=== PATIENT | male | born 2000 | race Caucasian/White ===

== ENCOUNTER 2023-03-12 16:05 | Day surgery (SDC) | payer OTHER ==
[2023-03-12] MEDS ORDERED: FAMOTIDINE 20 MG/50 ML IVPB 20 MG/50 ML MG IVPB ONE ×2 (16:47→17:09)
[2023-03-12] MEDS ORDERED: ACETAMINOPHEN 1000 MG/100 ML BAG IVPB ONE (16:47)
[2023-03-12] MEDS ORDERED: SODIUM CHLORIDE 0.9% 500 ML INFUS.BAG IV ONE (16:47)
[2023-03-12] MEDS ORDERED: ONDANSETRON 4 MG/2 ML VIAL IVPUSH ONE (16:47)
[2023-03-12] MEDS ORDERED: ACETAMINOPHEN INJECTION 100 ML IVPB ONE (17:09)
[2023-03-12] MEDS ORDERED: ONDANSETRON 4 MG/2 ML VIAL ONE (17:09)
[2023-03-12 17:20] LABS: HEMATOCRIT 43.7 % (35.4-49); HEMOGLOBIN 15.1 G/dL (11.7-16.9); MCH 31.5 pg (25.7-33.7); MCHC 34.6 g/dl (32.0-35.9); MEAN CELL VOLUME 91.1 fl (80-96); MEAN PLT VOLUME 7.4 fl (7.5-11.1); PLATELET COUNT 210.5 10^3/uL (134-434); RDW 13.6 % (11.9-15.9); WHITE BLOOD COUNT 15.1 10^3/uL (4.0-10.8)
[2023-03-12 17:28] LABS: INR 1.16 (0.83-1.09); PROTHROMBIN TIME (PATIENT) 13.4 SEC (9.7-13.0)
[2023-03-12 17:30] LABS: ACTIVATED PTT 29.2 SECONDS (25.2-36.5)
[2023-03-12 17:36] LABS: ALBUMIN 4.4 g/dl (3.4-5.0); BILIRUBIN,TOTAL 1.8 mg/dl (0.2-1); BLOOD UREA NITROGEN 13.9 mg/dl (7-18); CALCIUM 9.2 mg/dl (8.5-10.1); CREATININE 0.9 mg/dl (0.6-1.3); MAGNESIUM 2.1 mg/dL (1.8-2.4); POTASSIUM 3.4 mmol/L (3.5-5.1); SGOT/AST 50.1 U/L (15-37); SGPT/ALT 41.6 U/L (7-52); TOT PROT 6.9 g/dl (6.4-8.2)
[2023-03-12 18:02] LABS: PLATELET ESTIMATE ADEQUATE
[2023-03-12] MEDS ORDERED: PIPERACILLIN/TAZOBACTAM 4.5 GM VIAL IVPB ONE (22:02)
[2023-03-12] MEDS ORDERED: PIPERACILLIN/TAZOB 4.5 GM 4.5 GM in DEXTROSE 5%-WATER 100 ML IVPB ONE (22:02)
[2023-03-12] MEDS ORDERED: SODIUM CHLORIDE 1,000 ML IV ONE (22:02)
[2023-03-12] MEDS ORDERED: DEXTROSE 5%-NORMAL SALINE 1,000 ML IV SCH (23:00)
[2023-03-12 23:02] VITALS: BMI 24.9
[2023-03-13] MEDS ORDERED: ONDANSETRON 4 MG/2 ML VIAL IVPUSH PRN (01:15)
[2023-03-13] MEDS ORDERED: ACETAMINOPHEN 1000 MG/100 ML BAG IVPB PRN (01:15)
[2023-03-13] MEDS ORDERED: PIPERACILLIN/TAZOB 3.375 GM 3.375 GM in DEXTROSE 5%-WATER - 50 ML IVPB SCH (03:00)
[2023-03-13 09:21] LABS: BLOOD UREA NITROGEN 12.1 mg/dl (7-18); CALCIUM 8.7 mg/dl (8.5-10.1); POTASSIUM 3.9 mmol/L (3.5-5.1)
[2023-03-13] MEDS: CEFAZOLIN 1 GM in DEXTROSE 5%-WATER - 50 ML IVPB SCH ×2 (09:52→18:15)
[2023-03-13 11:47] LABS: BASO % 0.5 % (0-2.0); EOS % 1.3 % (0-4.5); HEMATOCRIT 40.4 % (35.4-49); HEMOGLOBIN 14.1 GM/dL (11.7-16.9); LYMPH % 18.5 % (8-40); MCH 31.1 pg (25.7-33.7); MCHC 34.8 g/dl (32.0-35.9); MEAN CELL VOLUME 89.4 fl (80-96); MEAN PLT VOLUME 7.6 fl (7.5-11.1); NEUT % 68.7 % (42.8-82.8); PLATELET COUNT 238 10^3/uL (134-434); RBC 4.52 M/mm3 (4.00-5.60); RDW 12.7 % (11.9-15.9); WHITE BLOOD COUNT 8.7 K/mm3 (4.0-10.0)
[2023-03-13] MEDS ORDERED: PROPOFOL 20 ML ONE ×2 (14:39→16:21)
[2023-03-13] MEDS ORDERED: SUCCINYLCHOLINE CHLORIDE 200 MG/10 ML SYRINGE ONE (14:39)
[2023-03-13] MEDS ORDERED: BUPIVACAINE HCL/PF 2.5 MG/ML - 30 ML VIAL IJ ONE (14:45)
[2023-03-13] MEDS ORDERED: MIDAZOLAM HCL 2 MG/2 ML SINGLE DOSE VIAL ONE (15:12)
[2023-03-13] MEDS ORDERED: DEXAMETHASONE SOD PHOSPHATE 4 MG/1 ML VIAL ONE (15:27)
[2023-03-13] MEDS ORDERED: ONDANSETRON 4 MG/2 ML VIAL ONE (15:27)
[2023-03-13] MEDS ORDERED: KETOROLAC TROMETHAMINE 30 MG/1 ML VIAL ONE (15:27)
[2023-03-13] MEDS ORDERED: ROCURONIUM BROMIDE 50 MG/5 ML SYRINGE ONE (15:27)
[2023-03-13] MEDS ORDERED: ceFAZolin SODIUM 1 GM VIAL ONE ×2 (15:42)
[2023-03-13] MEDS ORDERED: SUGAMMADEX SODIUM 200 MG/2 ML VIAL ONE (15:47)
[2023-03-13] MEDS ORDERED: BUPIVACAINE HCL/PF 0.25% (2.5MG/ML) 10 ML VIAL IJ ONE (16:24)
[2023-03-13] MEDS ORDERED: oxyCODONE HCL 5 MG TABLET PO PRN (16:37)
[2023-03-13] MEDS ORDERED: ACETAMINOPHEN 325 MG TABLET (FP) PO PRN (16:37)
[2023-03-13] MEDS ORDERED: LACTATED RINGERS SOLUTION 1,000 ML IV SCH (16:45)
[2023-03-13] MEDS ORDERED: ACETAMINOPHEN INJECTION 100 ML IVPB ONE (16:58)
[2023-03-13] MEDS: ACETAMINOPHEN 1000 MG/100 ML BAG IVPB ONE ×2 (16:59→17:47)
[2023-03-13] MEDS: KETOROLAC TROMETHAMINE 15 MG/ML VIAL IVPUSH SCH (17:46)
[2023-03-13 22:49] VITALS: RESP 18
[2023-03-14] MEDS: KETOROLAC TROMETHAMINE 15 MG/ML VIAL IVPUSH SCH ×3 (00:25→11:15)
[2023-03-14] MEDS: CEFAZOLIN 1 GM in DEXTROSE 5%-WATER - 50 ML IVPB SCH ×2 (02:34→11:46)
[2023-03-14] MEDS ORDERED: ACETAMINOPHEN 325 MG TABLET (FP) PO PRN (07:38)
[2023-03-14] MEDS ORDERED: oxyCODONE HCL 5 MG TABLET PO PRN (07:39)
[2023-03-14 07:53] LABS: HEMATOCRIT 41.1 % (35.4-49); HEMOGLOBIN 13.9 G/dL (11.7-16.9); MCH 30.9 pg (25.7-33.7); MCHC 33.7 g/dl (32.0-35.9); MEAN CELL VOLUME 91.6 fl (80-96); MEAN PLT VOLUME 7.3 fl (7.5-11.1); RBC 4.49 10^6/uL (4.00-5.60); RDW 13.4 % (11.9-15.9); WHITE BLOOD COUNT 10.9 10^3/uL (4.0-10.8)
[2023-03-14 08:51] LABS: ALBUMIN 3.8 g/dl (3.4-5.0); BILIRUBIN,TOTAL 0.7 mg/dl (0.2-1); BLOOD UREA NITROGEN 9.4 mg/dl (7-18); CALCIUM 8.7 mg/dl (8.5-10.1); CREATININE 0.8 mg/dl (0.6-1.3); POTASSIUM 3.8 mmol/L (3.5-5.1); SGOT/AST 18.5 U/L (15-37); SGPT/ALT 24.2 U/L (7-52); TOT PROT 6.1 g/dl (6.4-8.2)
[2023-03-14 09:19] VITALS: BP 120/52; PULSE 88; TEMP 98.3
== END 2023-03-14 14:34 | disposition home or self-care (01) ==
LOC: FER 16:05 → FM/S 22:17 → INTOOBSV 22:17 → UNDOADMOB 22:17 → FASUSAT 03-13 14:24 → FM/S 03-13 14:25 → FASUSAT 03-14 14:34
PROVIDERS: ATTEND Internal Medicine
PROC: 0DTJ4ZZ Resection of Appendix, Percutaneous Endoscopic Approach (ICD-10-PCS; principal; 2023-03-13 15:45)
DX: K35.80 Unspecified acute appendicitis (principal)
CPT/HCPCS: 0241U-QW; 36415; 74177-TC; 80048; 80053; 81003; 81015; 83690; 83735; 85025; 85027; 85610; 85730; 86850; 86900; 86901; 87086; 88304-TC; 94760; 99285-25; Q9967

== ENCOUNTER 2023-12-18 10:26 | Observation (INO) | payer OTHER ==
[2023-12-18] MEDS: SODIUM CHLORIDE 0.9% 500 ML INFUS.BAG IV ONE (10:58)
[2023-12-18] MEDS: ONDANSETRON 4 MG/2 ML VIAL IVPUSH ONE (10:59)
[2023-12-18] MEDS: ACETAMINOPHEN 1000 MG/100 ML BAG IVPB ONE (10:59)
[2023-12-18] MEDS ORDERED: ACETAMINOPHEN INJECTION 100 ML IVPB ONE (11:01)
[2023-12-18] MEDS ORDERED: ONDANSETRON 4 MG/2 ML VIAL ONE (11:01)
[2023-12-18 11:32] LABS: HEMATOCRIT 46.4 % (35.4-49); HEMOGLOBIN 15.4 G/dL (11.7-16.9); MCH 30.3 pg (25.7-33.7); MCHC 33.1 g/dl (32.0-35.9); MEAN CELL VOLUME 91.5 fl (80-96); MEAN PLT VOLUME 7.8 fl (7.5-11.1); PLATELET COUNT 192.9 10^3/uL (134-434); RBC 5.07 10^6/uL (4.00-5.60); WHITE BLOOD COUNT 11.9 10^3/uL (4.0-10.8)
[2023-12-18 11:43] LABS: ALK PHOS 53 U/L (45-117); ANION GAP 8 mmol/L (4-13); BILIRUBIN,TOTAL 0.8 mg/dl (0.2-1); CALCIUM 9.3 mg/dl (8.5-10.1); CHLORIDE 100 mmol/L (98-107); CO2 28 mmol/L (21-32); CREATININE 0.7 mg/dl (0.6-1.3); GLUCOSE,RANDOM 114 mg/dl (74-106); POTASSIUM 3.8 mmol/L (3.5-5.1); SGOT/AST 12 U/L (15-37); SGPT/ALT 18 U/L (7-52); SODIUM 136 mmol/L (136-145)
[2023-12-18] MEDS ORDERED: cefTRIAXone SODIUM 1 GM VIAL ONE (12:17)
[2023-12-18] MEDS ORDERED: PROCHLORPERAZINE INJECTION 10 MG/2 ML VIAL ONE (12:18)
[2023-12-18] MEDS: CEFTRIAXONE 2,000 MG in DEXTROSE 5%-WATER - 50 ML IVPB ONE (12:25)
[2023-12-18] MEDS: PROCHLORPERAZINE INJECTION 10 MG/2 ML VIAL IVPB ONE (12:25)
[2023-12-18] MEDS ORDERED: VANCOMYCIN 500 MG VIAL (RESTRICTED TO ID ONLY) ONE (12:33)
[2023-12-18] MEDS ORDERED: VANCOMYCIN 1,000 MG VIAL (RESTRICTED TO ID ONLY) ONE (12:34)
[2023-12-18] MEDS: VANCOMYCIN 1,250 MG in DEXTROSE 5%-WATER - 250 ML IVPB ONE (12:42)
[2023-12-18 12:49] LABS: PLATELET ESTIMATE ADEQUATE
[2023-12-18] MEDS: ACYCLOVIR INJECTION 650 MG in DEXTROSE 5%-WATER - 100 ML IVPB ONE (14:33)
[2023-12-18] MEDS: ACETAMINOPHEN 325 MG TABLET (FP) PO PRN (19:00)
[2023-12-18 20:03] VITALS: BMI 19.9
[2023-12-18] MEDS: ACYCLOVIR INJECTION 650 MG in DEXTROSE 5%-WATER - 100 ML IVPB SCH (20:55)
[2023-12-19] MEDS: CEFTRIAXONE 2 GM in DEXTROSE 5%-WATER 100 ML IVPB ONE (00:29)
[2023-12-19] MEDS: VANCOMYCIN/WATER 1250 MG 1,250 MG/250 ML BAG IVPB ONE (00:29)
[2023-12-19 08:45] LABS: HEMATOCRIT 44.2 % (35.4-49); HEMOGLOBIN 14.5 G/dL (11.7-16.9); MCH 30.1 pg (25.7-33.7); MCHC 32.7 g/dl (32.0-35.9); MEAN CELL VOLUME 92.1 fl (80-96); MEAN PLT VOLUME 7.4 fl (7.5-11.1); PLATELET COUNT 212.6 10^3/uL (134-434); RDW 13.4 % (11.9-15.9); WHITE BLOOD COUNT 5.7 10^3/uL (4.0-10.8)
[2023-12-19 09:05] LABS: ALBUMIN 3.9 g/dl (3.4-5.0); BILIRUBIN,TOTAL 0.5 mg/dl (0.2-1); CALCIUM 9.3 mg/dl (8.5-10.1); CREATININE 0.8 mg/dl (0.6-1.3); POTASSIUM 3.8 mmol/L (3.5-5.1); TOT PROT 6.6 g/dl (6.4-8.2)
[2023-12-19] MEDS: IBUPROFEN 400 MG TABLET (FP) PO SCH (09:56)
[2023-12-19] MEDS: CEFTRIAXONE 2 GM in DEXTROSE 5%-WATER 100 ML IVPB SCH (11:41)
[2023-12-19] MEDS: VANCOMYCIN/WATER 1250 MG 1,250 MG/250 ML BAG IVPB SCH (13:56)
[2023-12-19] MEDS: DOXYCYCLINE INJECTION 100 MG in DEXTROSE 5%-WATER 100 ML IVPB SCH (21:39)
[2023-12-20] MEDS ORDERED: CEFTRIAXONE 2 GM in DEXTROSE 5%-WATER 100 ML IVPB SCH (00:01)
[2023-12-20 06:37] VITALS: PULSE 78
[2023-12-20 08:59] LABS: HEMATOCRIT 47.7 % (35.4-49); HEMOGLOBIN 15.6 G/dL (11.7-16.9); MCH 30.2 pg (25.7-33.7); MCHC 32.8 g/dl (32.0-35.9); MEAN CELL VOLUME 92.1 fl (80-96); MEAN PLT VOLUME 7.4 fl (7.5-11.1); PLATELET COUNT 268.5 10^3/uL (134-434); RBC 5.18 10^6/uL (4.00-5.60); RDW 13.5 % (11.9-15.9); WHITE BLOOD COUNT 4.7 10^3/uL (4.0-10.8)
[2023-12-20 09:23] LABS: CALCIUM 9.7 mg/dl (8.5-10.1); CREATININE 0.7 mg/dl (0.6-1.3); POTASSIUM 4.2 mmol/L (3.5-5.1)
[2023-12-20 09:55] VITALS: BP 114/69; RESP 17; TEMP 98.3
[2023-12-20] MEDS: CEFTRIAXONE 2 GM in DEXTROSE 5%-WATER 100 ML IVPB SCH (10:12)
[2023-12-23 14:09] LABS: WEST NILE VIRUS AB SERUM,IGM Negative (Negative)
[2023-12-23 15:09] LABS: BABESIA MICROTI ANTIBODY IGG <1:10 (Neg:<1:10); BABESIA MICROTI ANTIBODY IGM <1:10 (Neg:<1:10)
== END 2023-12-20 14:26 | disposition home or self-care (01) ==
LOC: FER 10:26 → FM/S 13:53
PROVIDERS: ADMIT Internal Medicine; ATTEND Internal Medicine
PROC: 3E03329 Introduction of Other Anti-infective into Peripheral Vein, Percutaneous Approach (ICD-10-PCS; principal; 2023-12-18)
PROC: 3E033NZ Introduction of Analgesics, Hypnotics, Sedatives into Peripheral Vein, Percutaneous Approach (ICD-10-PCS; 2023-12-18)
PROC: 3E033GC Introduction of Other Therapeutic Substance into Peripheral Vein, Percutaneous Approach (ICD-10-PCS; 2023-12-18)
PROC: 3E0337Z Introduction of Electrolytic and Water Balance Substance into Peripheral Vein, Percutaneous Approach (ICD-10-PCS; 2023-12-18)
DX: R29.1 Meningismus (principal); R50.9 Fever, unspecified; M54.2 Cervicalgia; Z90.49 Acquired absence of other specified parts of digestive tract
CPT/HCPCS: 0241U-QW; 36415; 70450-TC; 71046-TC-FY; 72050-TC-FY; 80048; 80053; 82930; 85027; 86618; 86753; 86788; 86789; 87040; 87207; 87633; 87798; 96365; 96366; 96367; 96368; 96375; 99285-25; G0378; J0131